=== PATIENT | female | born 1990 | race Caucasian/White ===

== ENCOUNTER 2017-07-22 17:18 | Emergency (ER) | payer OTHER ==
[~2017-07-22] VITALS: Ht 154.9 cm; Wt 59.9 kg
[2017-07-22 17:34] VITALS: BP 117/95
--- NOTE | 2017-07-22 17:53 | NUR ---
PT AMBULATES TO BED 8, REPORT GIVEN TO MIRELLA DEVINE
--- NOTE | 2017-07-22 18:00 | NUR ---
PT COMES TO ED C/O LOWER ABD PAIN FOR 3 DAYS, WITH DIARRHEA 5-10 TIMES A DAY FOR 2 DAYS. PT STATES SHE HAD AN EPISODE OF CONSTIPATION FOR ALMOST A WEEK, WENT TO URGENT CARE AND WAS INSTRUCTED TO TAKE COLACE AND METAMUSIL. PT STARTED TO HAVE DIARRHEA SINCE 07/20/17. ALSO REPORTS BRIGHT RED BLOOD ON TISSUE WHEN WIPING. DENIES N/V OR SOB. PTS ABD IS SOFT AND NONTENDER. PENDING MD HANNA
--- NOTE | 2017-07-22 19:08 | NUR ---
Report recieved from Deepak VU.
--- NOTE | 2017-07-22 19:39 | NUR ---
BLOOD SET TO LAB WITH TECH
[2017-07-22 19:53] LABS: BILIRUBIN,URINE NEGATIVE (NEGATIVE); BLOOD, URINE 1+ (NEGATIVE); COLOR,URINE YELLOW (YELLOW); LEUKOCYTE ESTERASE ,URINE NEGATIVE (NEGATIVE); NITRITE, URINE NEGATIVE (NEGATIVE); UGLUCOSE NEGATIVE (NEGATIVE)
[2017-07-22 19:55] LABS: APPEARANCE,URINE CLEAR (CLEAR)
[2017-07-22 19:58] LABS: BASOPHILS # (AUTO) 0.3 K/uL (0.00-0.22); BASOPHILS % (AUTO) 3.9 % (0.0-2.0); EOSINOPHILS # (AUTO) 0.1 K/uL (0-0.4); HEMATOCRIT 42.5 % (36-48); LYMPHOCYTES # (AUTO) 0.5 K/uL (2.5-16.5); MEAN CORPUSCULAR HEMOGLOBIN 32 pg (27-31); MEAN CORPUSCULAR HGB CONC 33 g/dL (33-37); MEAN CORPUSCULAR VOLUME 97.2 fL (80-94); MONOCYTES # (AUTO) 0.6 K/uL (0.8-1.0); NEUTROPHILS # (AUTO) 5.7 K/uL (1.8-7.7); PLATELET COUNT (AUTO) 170 K/uL (140-450); RED BLOOD CELL COUNT(AUTO) 4.37 MIL/uL (4.20-5.40); RED CELL DISTRIBUTION WIDTH 10.5 % (11.6-13.7); WHITE BLOOD COUNT (AUTO) 7.2 K/uL (4.8-10.8)
[2017-07-22 20:00] LABS: ANION GAP 12.6 (8-16); CARBON DIOXIDE 25.8 mmol/L (21-32); CREATININE 0.7 mg/dL (0.6-1.3); POTASSIUM 3.4 mmol/L (3.5-5.1)
[2017-07-22 20:06] LABS: ALBUMIN 3.4 g/dL (3.4-5.0); TOTAL BILIRUBIN 0.4 mg/dL (0.0-1.0)
[2017-07-22 20:08] LABS: RBC,URINE 3-10 (FEW) /HPF (0-5); WBC,URINE 0-5 (RARE) /HPF (0-5)
--- NOTE | 2017-07-22 20:24 | NUR ---
PT TAKEN TO CT
--- NOTE | 2017-07-22 20:32 | NUR ---
PT RETURNED FROM CT
[2017-07-22] MEDS ORDERED: metroNIDAZOLE 250 MG TAB PO ONE (21:30)
[2017-07-22] MEDS ORDERED: CIPROFLOXACIN 250 MG TAB PO ONE (21:30)
--- NOTE | 2017-07-22 21:31 | NUR ---
WAITING FOR ER MD DR WASHBURN DISCHARGE INSTRUCTIONS AND ANY PRESCRIPTIONS.
--- NOTE | 2017-07-22 21:49 | NUR ---
WAITING FOR ER MD DR WASHBURN DISCHARGE INSTRUCTIONS AND ANY PRESCRIPTIONS.
[2017-07-22 22:05] VITALS: BP 111/85
--- NOTE | 2017-07-22 22:05 | NUR ---
Patient discharged with v/s stable. Written and verbal after care instructions given and explained. Patient alert, oriented and verbalized understanding of instructions. Ambulatory with steady gait. All questions addressed prior to discharge. ID band removed. Patient advised to follow up with PMD. Rx of FLAGYL, CIPRO given. Patient educated on indication of medication including possible reaction and side effects. Opportunity to ask questions provided and answered.
== END 2017-07-22 22:05 | disposition home or self-care (01) ==
LOC: MED 17:18
DX: K52.9 Noninfective gastroenteritis and colitis, unspecified (principal)
CPT/HCPCS: 36415; 80053; 81001; 81025; 83690; 85025; 86886; 86900; 86901; 99285